=== PATIENT | female | born 1990 | race Caucasian/White ===

== ENCOUNTER → 2021-01-23 14:59 | Outpatient (CLI) | payer OTHER, SELFPAY ==
[2021-01-23 15:25] LABS: Add Manual Diff / Slide Review NO; Basophils Absolute Auto 100 /uL (0-100); Eosinophils Absolute Auto 100 /uL (0-450); Eosinophils Percent Auto 0.7 % (2-4); Hemoglobin 13.7 g/dL (12.0-16.0); Lymphocytes Absolute Auto 2200 /uL (1100-4500); Lymphocytes Percent Auto 17.7 % (25-40); Mean Corpuscular HGB Conc 33.3 % (30-36); Mean Corpuscular Hemoglobin 28.1 PG (26-34); Mean Corpuscular Volume 84.3 fL (80-100); Monocytes Absolute Auto 1000 /uL (0-900); Monocytes Percent Auto 8.2 % (3-14); Neutrophils Absolute Auto 9000 /uL (1500-7000); Neutrophils Percent Auto 72.4 % (50-75); Platelet Count 343 X10^3/uL (150-400); Red Blood Cell Count 4.86 X10^6/uL (4.0-5.2); Red Cell Distribution Width 15.6 % (11.6-14.8); White Blood Cell Count 12.4 X10^3/uL (4.5-11.0)
[2021-01-23 15:50] LABS: Appearance Urine UA CLEAR; Bilirubin Urine UA NEGATIVE (NEGATIVE); Color Urine UA YELLOW; Glucose Urine UA NEGATIVE (Negative); Ketones Urine UA NEGATIVE (NEGATIVE); Leukocyte Esterase Urine UA NEGATIVE (NEGATIVE); Nitrite Urine UA NEGATIVE (Negative); Occult Blood Urine UA NEGATIVE (Negative); Protein Urine UA NEGATIVE (Negative); Specific Gravity Urine UA 1.015 (1.000-1.035); Urobilinogen Urine UA 0.2 E.U./dL (0.2)
[2021-01-23 16:18] LABS: Hepatitis B Surface Antigen NEGATIVE s/c (NEGATIVE)
[2021-01-23 16:26] LABS: Rubella Antibody IgG 57.4 IU/mL (>15)
[2021-01-23 16:48] LABS: HIV 1 & 2 Ab/Ag 4th Gen Combo NEGATIVE (NEGATIVE); Hep C Virus Ab w/Reflex Quant NEGATIVE s/c (NEGATIVE)
[2021-01-24 06:16] LABS: RPR Screen Non Reactive (Non Reactive)
[2021-01-24 07:58] LABS: Varicella IgG Antibody >4000 index (Immune >165)
== END ==
PROVIDERS: Referring Provider Family Medicine; Visit Provider Family Medicine
DX: Z34.01 Encounter for supervision of normal first pregnancy, first trimester (principal)
CPT/HCPCS: 36415; 80055; 81003; 86787; 86803; 86850; 86900; 86901; 87086; 87389

== ENCOUNTER → 2021-03-26 15:29 | Outpatient (CLI) | payer OTHER, SELFPAY ==
[2021-03-28 21:14] LABS: AFP, Serum 59.6 ng/mL (.); Calc Gestational Age EDD (.); Inhibin A, Dimeric 304.85 pg/mL (.); Inhibin A, MoM 2.34 (.); Maternal Ethnicity Caucasian (.); Maternal Weight 202 lbs (.); Number of Fetuses No (.); OSBR Risk 1 IN 1757 (.); Results Report (.); Test Results *Screen Negative* (.); hCG, MoM 1.56 (.); hCG, Serum 37477 mIU/mL (.)
== END ==
PROVIDERS: Referring Provider Family Medicine; Visit Provider Family Medicine
DX: Z34.90 Encounter for supervision of normal pregnancy, unspecified, unspecified trimester (principal)
CPT/HCPCS: 36415; 82105; 82677; 84702; 86336

== ENCOUNTER → 2021-04-10 12:41 | Outpatient (CLI) | payer OTHER, SELFPAY ==
--- NOTE | 2021-04-10 12:43 | DI.US.S_ITS ---
PROCEDURE: US OB >= 14 WEEKS FETUS INDICATIONS: ANATOMY OUTSIDE/PRIOR DATING DATA: Last menstrual period (LMP): Unknown. LMP-based estimated date of delivery (ZION): Unknown. First dating scan (date and location): 04/10/2021 at [facility]. Estimated date of delivery (ZION) from first dating scan: 08/27/2021. TECHNIQUE: Real-time scanning was performed of the fetus, with image documentation and biometric measurements. Endovaginal scanning: Not performed. COMPARISON: None. FINDINGS: General: A single living intrauterine gestation is present. Presentation: Breech Placenta: Placental position is anterior, without previa. Amniotic fluid index: 11.1 cm, normal range is 5-24 cm. Largest pocket is 4.2 cm. heart rate: 171 beats per minute. Maternal cervical canal: 3.9 cm long. Normal lower limit is 2.5 cm. biometrics: Biparietal diameter: 4.4 cm, 19 weeks 3 days Head circumference: 17.8 cm, 20 weeks 2 days Abdominal circumference: 15.2 cm, 20 weeks 3 days Femur length: 3.3 cm, 20 weeks 1 day Estimated gestational age from initial scan: not applicable. Composite gestational age from present scan: 20 weeks 1 day Estimated weight and percentile: 341 gramst Measurement variability for biometric dating: +/- 7 days from 14 weeks to 15 weeks 6 days gestation, +/- 10 days from 16 weeks to 21 weeks 6 days gestation, +/- 2 weeks from 22 weeks to 27 weeks 6 days gestation, +/- 3 weeks for 28 weeks gestation or later. weight reference: 4500 g or EFW >90/95% is considered macrosomia or large for gestational age. EFW <10% is small for gestational age. EFW 5% or less is considered intra-uterine growth restriction. Anatomic survey: Neuro: Ventricles are non-dilated at less than 10 mm. Cisterna magna is normal at 3-11 mm. Cerebellum is normal in size and morphology. Nuchal skin fold: Normal at less than 6 mm between 14-21 weeks gestational age. Face: Facial profile is normal. Nose and lips are not well visualized. Spine: No evidence for spina bifida. Heart: 4-chambered heart is slightly suboptimally visualized. Ventricular outflow tracts are grossly normal. Diaphragm: Diaphragm is intact. Stomach: Left-sided stomach is present. Kidneys: No hydronephrosis. Normal is less than 5 mm in 2nd trimester, less than 7 mm in 3rd trimester. Cord: 3-vessel cord has orthotopic insertion. Bladder: Normal in size. Extremities: All 4 extremities identified. IMPRESSION: 1. Single live intrauterine with estimated gestational age of 20 weeks 1 day. 2. nose and lips, and 4 chamber heart view are suboptimally visualized. Recommend follow-up exam. 3. Otherwise, normal anatomic survey. Dictated by: Gilbert Smith M.D. on 04/10/2021 at 16:19 Approved by: Gilbert Smith M.D. on 04/10/2021 at 16:25
== END ==
PROVIDERS: PCP Family Medicine; Referring Provider Family Medicine; Visit Provider Family Medicine
DX: Z34.92 Encounter for supervision of normal pregnancy, unspecified, second trimester (principal); Z3A.20 20 weeks gestation of pregnancy
CPT/HCPCS: 76811

== ENCOUNTER → 2021-04-23 12:47 | Outpatient (CLI) | payer OTHER, SELFPAY ==
--- NOTE | 2021-04-23 12:48 | DI.US.S_ITS ---
PROCEDURE: US OB FOLLOW UP INDICATIONS: IMCOMPLETE IMAGING OUTSIDE/PRIOR DATING DATA: First dating scan (date and location): [facility]; April 10, 2021 . Estimated date of delivery (ZION) from first dating scan: August 27, 2021 . TECHNIQUE: Real-time scanning was performed of the fetus, with image documentation. COMPARISON: None. FINDINGS: A single living intrauterine gestation is present. Presentation: Breech. Placenta: Placental position is anterior , without previa. Amniotic fluid index: 15.8 cm, normal range is 5-24 cm. heart rate: 158 beats per minute. Maternal cervical canal: 5.2 cm long. Normal lower limit is 2.5 cm. Estimated gestational age from initial scan: 22 weeks . Normal four-chamber view. Face, orbits, and lips are still not well seen. IMPRESSION: Live single intrauterine gestation as detailed above. Dictated by: Abisai García M.D. on 04/23/2021 at 14:46 Approved by: Abisai García M.D. on 04/23/2021 at 14:49
== END ==
PROVIDERS: PCP Family Medicine; Referring Provider Family Medicine; Visit Provider Family Medicine
DX: Z36.2 Encounter for other antenatal screening follow-up (principal); Z3A.22 22 weeks gestation of pregnancy
CPT/HCPCS: 76816

== ENCOUNTER → 2021-04-30 12:38 | Outpatient (CLI) | payer OTHER, SELFPAY ==
--- NOTE | 2021-04-30 | DI.US.S_ITS ---
PROCEDURE: US OB FOLLOW UP INDICATIONS: NOSE/LIPS FOLLOW UP OUTSIDE/PRIOR DATING DATA: Last menstrual period (LMP): Unknown. First dating scan (date and location): [facility]; April 10, 2021 . Estimated date of delivery (ZION) from first dating scan: August 27, 2021 . TECHNIQUE: Real-time scanning was performed of the fetus, with image documentation. COMPARISON: [facility], , OB FOLLOW UP, 04/23/2021, 12:56. FINDINGS: A single living intrauterine gestation is present. Presentation: Vertex. Placenta: Placental position is anterior , without previa. Amniotic fluid index: 13.7 cm, normal range is 5-24 cm. heart rate: 158 beats per minute. Maternal cervical canal: 6.1 cm long. Normal lower limit is 2.5 cm. Estimated gestational age from initial scan: 23 week . Face, lips, orbits: Normal appearance. IMPRESSION: Live single intrauterine gestation as detailed above. Dictated by: Abisai García M.D. on 04/30/2021 at 13:29 Approved by: Abisai García M.D. on 04/30/2021 at 13:32
== END ==
PROVIDERS: PCP Family Medicine; Referring Provider Family Medicine; Visit Provider Family Medicine
DX: Z36.2 Encounter for other antenatal screening follow-up (principal); Z3A.23 23 weeks gestation of pregnancy
CPT/HCPCS: 76816

== ENCOUNTER → 2021-06-11 14:56 | Outpatient (CLI) | payer OTHER, SELFPAY ==
[2021-06-11 16:46] LABS: Add Manual Diff / Slide Review NO; Basophils Absolute Auto 100 /uL (0-100); Basophils Percent Auto 0.7 % (0-2); Eosinophils Absolute Auto 100 /uL (0-450); Eosinophils Percent Auto 1.3 % (2-4); Hematocrit 30.2 % (36-46); Lymphocytes Absolute Auto 1800 /uL (1100-4500); Lymphocytes Percent Auto 18.3 % (25-40); Mean Corpuscular HGB Conc 32.9 % (30-36); Mean Corpuscular Hemoglobin 26.9 PG (26-34); Mean Corpuscular Volume 81.8 fL (80-100); Monocytes Absolute Auto 600 /uL (0-900); Monocytes Percent Auto 6.3 % (3-14); Neutrophils Absolute Auto 7100 /uL (1500-7000); Neutrophils Percent Auto 73.4 % (50-75); Platelet Count 258 X10^3/uL (150-400); Red Cell Distribution Width 14.4 % (11.6-14.8); White Blood Cell Count 9.7 X10^3/uL (4.5-11.0)
[2021-06-11 17:33] LABS: GTT (PREG) 1 Hour PP 50gm Dose 153 mg/dL (76-139)
== END ==
PROVIDERS: PCP Family Medicine; Referring Provider Family Medicine; Visit Provider Family Medicine
DX: Z34.83 Encounter for supervision of other normal pregnancy, third trimester (principal); Z3A.26 26 weeks gestation of pregnancy
CPT/HCPCS: 36415; 82950; 85025

== ENCOUNTER → 2021-06-18 07:09 | Outpatient (CLI) | payer OTHER, SELFPAY ==
[2021-06-18 08:57] LABS: Glucose Fasting Gestational 89 mg/dL (76-95)
[2021-06-18 09:40] LABS: Glucose 1 Hour Gest 220 mg/dL (76-180)
[2021-06-18 10:35] LABS: Glucose Tol Interp,Gestational INTERPRETATION
[2021-06-18 10:38] LABS: Glucose 2 Hour Gest 157 mg/dL (76-155)
[2021-06-18 11:19] LABS: Glucose 3 Hour Gest 81 mg/dL (76-140)
== END ==
PROVIDERS: PCP Family Medicine; Referring Provider Family Medicine; Visit Provider Family Medicine
DX: Z34.90 Encounter for supervision of normal pregnancy, unspecified, unspecified trimester (principal); R73.09 Other abnormal glucose
CPT/HCPCS: 36415; 82951; 82952

== ENCOUNTER → 2021-06-25 15:08 | Outpatient (CLI) | payer OTHER, SELFPAY ==
--- NOTE | 2021-06-25 17:30 | DIAB.GDA ---
Addendum entered by Doris Granados 07/03/21 09:15: Pt messaged BG values on 07/03/21. All within goal range. Some 2 hr pc breakfast on the lower end in 80s. So, potentially could add more nutrition to breakfast to meet goal of 100-120 2 hour pc. Will see her virtually next week to cont evaluation of GDM mgmgnt. Original Note: Initial Gestational Diabetes Assessment Name: Taylor Mccain Date: 06/25/21 Time: 315-430p Dx: Gestational Diabetes Provider: Estelle ZION: 08/29/21 Weeks: 30-31 Taylor presents with , Aakash, for initial visit. States she has been very worried about diagnosis. Worries about complications associated with GDM, specifically preeclampsia risk. Denies any FH of DM. Has cut back on carb intake. Food journal indicates 15-60g CHO per eating occurrence. Eating below SITE LEAD for for carbohydrates. States she likes convenience foods and often does not feel like cooking. Diet Recall: 630a: eggs, bread, cheese, tomatoes 13g CHO 9a: avocado, 2 crackers, cheese, almonds 15g CHO 1230p: salad, chicken, half slice bread, 2 cuties 30g CHO 330p: crackers, tomatoes, nuts, cheese 15g CHO 6p: pierogies and vegetables with tofu OR burgers without bun 0-60g CHO Beverages: 64+ oz water Anthropometrics: Ht: 5'6.5 Wt: 217# at provider visit Prepregnancy wt: 190# Wt changes: +27# Prepregnancy BMI: 30 Recommended wt gain per BMI: 11-20# Physical Activity: No program Self-Monitoring Blood Glucose: Started checking yesterday. Denies any questions about SMBG. All in range. Date Pre Post Pre Post Pre Post HS 06/24 84 81 71 104 06/25 87 89 Diabetes Medications: None Pertinent Labs: OGTT: 89, 220 H, 157H, 81 Nutrition Rx: Carbohydrates: Meal: 45g lunch and 45-60g dinner; 30g breakfast Snack: 15g Nutrition Diagnosis: Altered nutrition related lab value r/t GDM dx aeb recent OGTT Inadequate carb intake r/t increased needs during aeb diet journal Intervention: This participant was very receptive. Provided appropriate educational handouts. Discussed the following topics: GDM pathophysiology and impact of hyperglycemia on mom and baby Risk for T2DM for mom and baby in the future Ways to reduce risk T2DM Reducing risks with well managed GDM and discussing preeclampsia further with provider Plate Method, meal timing, carb counting, pairing macronutrients and spreading out CHO for better BG management Blood glucose goals (FBG: <95 and 2 hour <120 mg/dL); importance of checking 4x per day (FBG and pc) Impact of macronutrients on blood glucose Recommended servings for carbohydrates at meals and snacks Brainstormed appropriate meal plan based on her food preferences Role of physical activity and following provider guidelines for safety Goals: Follow carb recs (add with moderation) Cont checking Bg and documenting Pair carbs and protein at meals and snacks After dinner add a walk or exercise Follow-up: CHANELLE LAZO follow-up in one week via email with BG (she will be out of town). Requested virtual f/u due to work. Plan to f/u in two weeks virtually. Doris Granados RDN, [place] Certified Diabetes Care and Game Attendant T: [phone] F: [phone] [email or web address] Thank you for this referral
== END ==
PROVIDERS: PCP Family Medicine; Referring Provider Family Medicine; Visit Provider Family Medicine
DX: O24.419 Gestational diabetes mellitus in pregnancy, unspecified control (principal)
CPT/HCPCS: 97802

== ENCOUNTER → 2021-07-10 15:27 | Outpatient (CLI) | payer OTHER, SELFPAY ==
--- NOTE | 2021-07-10 16:10 | DIAB.GDFU ---
Follow-up Gestational Diabetes Assessment Name: Taylor Mccain Date: 07/10/21 Time: 330-4p Dx: Gestational Diabetes Provider: Estelle ZION: 08/29/21 Weeks: 32-33 Taylor presents for this virtual visit completed via [employer]. She has consented and understands any risks associated with virtual visits. She recently returned from vacation in [place]. States managing GDM was difficult while on vacation. Reports most BG in range, however last three dinners were elevated r/t higher carb intake, low vegetable/fiber intake. States these were the last nights in [place] and they were eating higher carb convenient foods. Also endorses higher sweet intake. States she feels confident that she can resume regular meals now that she is home. Has been checking carbs for eating out online and aiming for nutrition rx. Noticed keeping dinner at 45-60g seems to work well for BG. Highest BG 154 last night from grazing on the way home and frozen yogurt. Reports some stress with family dynamics. She wonders if this could play a role in BG. Sees OB on the for f/u. Overall feeling satisfied with meals within nutrition rx. Anthropometrics: (From last visit) Ht: 5'6.5 Wt: 217# at provider visit Prepregnancy wt: 190# Wt changes: +27# Prepregnancy BMI: 30 Recommended wt gain per BMI: 11-20# Physical Activity: Endorses increased walking on vacation, but has not implemented exercise after dinner discussed last visit. Plans to do so this week. Self-Monitoring Blood Glucose: All FBG in range. All pc breakfast and lunch readings in range. 3/6 elevated dinner readings r/t high carb intake. Date Pre Post Pre Post Pre Post HS 07/04 86 98 94 07/05 86 97 98 /2 94 106 97 07/07 91 90 144 07/08 90 115 141 / 93 86 105 154 / 92 113 Diabetes Medications: None Pertinent Labs: OGTT: 89, 220 H, 157H, 81 Nutrition Rx: Carbohydrates: Meal: 45g lunch and 45-60g dinner; 30g breakfast Snack: 15g Nutrition Diagnosis: Altered nutrition related lab value r/t GDM dx aeb recent OGTT Inadequate carb intake r/t increased needs during aeb diet journal- improved Excessive CHO intake r/t dinner portions aeb pt report - new Intervention: This participant was very receptive. Provided appropriate educational handouts. Discussed the following topics: Recent blood sugar results and impact of food Review of macronutrient recommendations during Recs for physical activity during Stress impact on BG Goals: Follow carb recs (add with moderation)- met/in progress Cont checking Bg and documenting- met Pair carbs and protein at meals and snacks- met After dinner add a walk or exercise- not met Reduce CHO at dinner to 45-60g - new Implement exercise game after dinner- new Follow-up: CHANELLE LAZO follow-up in two weeks via Vsee. Taylor would prefer to f/u virtually. Overall she seems to be doing well with GDM mgmgnt. She agree to work on phys activity safely and reducing carbs at dinner to nutrition rx. Doris Granados RDN, [facility] Certified Diabetes Care and Mounting Machine Operator T: [phone] F: [phone] [email or web address] Thank you for this referral
== END ==
PROVIDERS: PCP Family Medicine; Referring Provider Family Medicine; Visit Provider Family Medicine
DX: O24.410 Gestational diabetes mellitus in pregnancy, diet controlled (principal); Z3A.32 32 weeks gestation of pregnancy
CPT/HCPCS: 97803

== ENCOUNTER → 2021-07-24 17:03 | Outpatient (CLI) | payer OTHER, SELFPAY ==
--- NOTE | 2021-07-24 17:05 | DIAB.GDFU ---
Follow-up Gestational Diabetes Assessment Name: Taylor Mccain Date: 07/24/21 Time: 410-450p Dx: Gestational Diabetes Provider: Estelle ZION: 08/29/21 Weeks: 35 Taylor presents today for follow-up GDM visit via WebTV platform. She has consented to this virtual visit. States she has been very mindful of carb portions. Keeping intake to rec 30g at breakfast and 45 at lunch and 45-60g at dinner. With this BG have been in range. Reports avoiding restaurants that she cannot carb count. States she has been craving sweets recently, especially with the leftover sweets from her baby shower. She endorses spreading out carb intake and pairing sweets with protein when having them. Keeping CHO to 1c at dinner and having high protein chickpea pasta too. Currently taking [facility] classes. Anthropometrics: Ht: 5'6.5 Wt: 221# at provider visit Prepregnancy wt: 190# Prepregnancy BMI: 30 Physical Activity: Activity continues to be hard to schedule in for her, but she has increased her walking and activity games with . Also has been trying to move more use the stairs. Self-Monitoring Blood Glucose: All reading in range except one dinner pc reading, which seems elevated from extra sauce used with carbs. Checking FBG and 2 hour pc. ADA goal of 100-120 mg/dL. Reports adequate carb intake and satiety with meals. One reading of 65 seems like an error (had carbs with breakfast and no symptoms of low). Date Pre Post Pre Post Pre Post HS 07/18 84 84 105 92 07/19 82 65 102 100 07/20 86 102 115 138 07/21 89 86 94 108 07/22 79 112 94 99 07/23 85 111 100 94 07/24 86 107 97 Diabetes Medications: None Pertinent Labs: OGTT: 89, 220 H, 157H, 81 Nutrition Rx: Carbohydrates: Meal: 45g lunch and 45-60g dinner; 30g breakfast Snack: 15g Nutrition Diagnosis: Altered nutrition related lab value r/t GDM dx aeb recent OGTT Excessive CHO intake r/t dinner portions aeb pt report - improved Nutrition and food related knowledge deficit r/t needing education on recs aeb pt report - new Intervention: This participant was very receptive. Provided appropriate educational handouts. Discussed the following topics:g Recent blood sugar results and impact of food Review of current nutrition intake Review of eating out portions Benefits, resources, and nutrition for recommendations for nutrition and physical activity recommendations for T2DM risk reduction OGTT at 6-12 weeks Option of checking blood sugars twice per week (goal: fasting <100 mg/dL and 2 hour pc <140 mg/dL) until 6 week check-up HgA1c q 1-3 years. Risk of T2 and how to reduce risk Goals: Reduce CHO at dinner to 45-60g - met Implement exercise game after dinner- improved Try to remain active daily- new : OGTT 6-12weeks HgA1c q 1-3 years Follow nutrition guidelines discussed Stay active Follow-up: CHANELLE LAZO follow-up prn Doris Granados RDN, [place] Certified Diabetes Care and Tool Grinder T: [phone] F: [phone] [email or web address] Thank you for this referral
== END ==
PROVIDERS: PCP Family Medicine; Referring Provider Family Medicine; Visit Provider Family Medicine
DX: O24.410 Gestational diabetes mellitus in pregnancy, diet controlled (principal); Z3A.35 35 weeks gestation of pregnancy
CPT/HCPCS: 97803

== ENCOUNTER → 2021-07-30 15:15 | Outpatient (CLI) | payer OTHER, SELFPAY ==
[2021-08-01 09:31] LABS: Strep Grp B PCR NEG for Grp B Strep
== END ==
PROVIDERS: PCP Family Medicine; Referring Provider Family Medicine; Visit Provider Family Medicine
DX: Z34.03 Encounter for supervision of normal first pregnancy, third trimester (principal); Z3A.27 27 weeks gestation of pregnancy
CPT/HCPCS: 87653

== ENCOUNTER 2021-08-27 01:43 | Inpatient (IN) | payer OTHER, SELFPAY ==
[2021-08-27 05:40] LABS: Add Manual Diff / Slide Review NO; Basophils Absolute Auto 100 /uL (0-100); Basophils Percent Auto 0.8 % (0-2); Eosinophils Absolute Auto 100 /uL (0-450); Eosinophils Percent Auto 0.6 % (2-4); Hematocrit 41.3 % (36-46); Hemoglobin 13.6 g/dL (12.0-16.0); Lymphocytes Absolute Auto 1900 /uL (1100-4500); Lymphocytes Percent Auto 14.7 % (25-40); Mean Corpuscular HGB Conc 32.8 % (30-36); Mean Corpuscular Hemoglobin 27.7 PG (26-34); Mean Corpuscular Volume 84.3 fL (80-100); Monocytes Absolute Auto 800 /uL (0-900); Monocytes Percent Auto 6.6 % (3-14); Neutrophils Absolute Auto 10000 /uL (1500-7000); Neutrophils Percent Auto 77.3 % (50-75); Platelet Count 227 X10^3/uL (150-400); Red Cell Distribution Width 18.5 % (11.6-14.8); White Blood Cell Count 12.9 X10^3/uL (4.5-11.0)
[2021-08-27 05:51] LABS: COVID19 -Nasal RAPID Negative (Negative)
--- NOTE | 2021-08-27 08:35 | PM.OBHP.IH.1 ---
OB HPI Date/Time Date of admission: 08/27/21 Date Patient Seen: 08/27/21 Time Patient Seen: 07:50 History of Present Condition Chief complaint: LABOR PAINS ZION Calculator Estimated Delivery Date Method Current WG Current Estimate 08/29/21 Manual 39w 5d Final ZION - SOTERO Other Estimates 08/29/21 LMP (Certain) 39w 5d 08/29/21 Ultrasound #1 39w 5d Estimated Gestational Age (weeks): 39w5d : 1 Para: 0 Narrative: Pt is a 31yo at 39w5d here with regular painful contractions. Contractions started yesterday afternoon, increasing in frequency and intensity since then. She felt a little leaking yesterday but nothing since then. No vaginal bleeding. She is feeling her baby move regularly. Her was complicated by GDMA1 with excellent dietary control. care: good care, initiated at week # (8) and pounds weight gain (35) Dating criteria OB: LMP confirmed by 1st trimester US Ultrasounds: normal 1st trimester US and normal mid trimester US Obstetrical complications: gestational diabetes Medical complications OB: none Preadmission Labs Last OB Lab Results: Blood Type A Positive 08/27/21 04:45 08/27/21 Antibody Screen Negative 08/27/21 04:45 08/27/21 Hematocrit 41.3 % (36-46) 08/27/21 04:45 08/27/21 Hemoglobin 13.6 g/dL (12.0-16.0) 08/27/21 04:45 08/27/21 Hepatitis B Surface Antigen Negative s/c (NEGATIVE) 01/23/21 15:04 01/23/21 Hepatitis C Antibody Negative s/c (NEGATIVE) 01/23/21 15:04 01/23/21 Rubella Antibody 57.4 IU/mL (>15) 01/23/21 15:04 01/23/21 Varicella-Zoster IgG Antibody >4000 index (Immune >165) 01/23/21 15:04 01/23/21 Glucose 1 Hour 153 mg/dL (76-139) H 06/11/21 16:30 06/11/21 Group B Streptococcus (PCR) Neg for grp b strep 07/30/21 15:15 07/30/21 Glucose Tolerance Testing: Fasting (89), 1 hr (220), 2 hr (157) and 3 hr (81) -: Urine: negative Genetic Screens: Quad screen: Normal External Labs -: Urine: negative Evaluation Evaluation Baseline heart rate: 130 Variability: Moderate (11-25) monitor accelerations: Present Monitor Decelerations: Absent Contraction Frequency (minutes): 6 Status: Category l Dilation (cm): 6 Effacement (%): 90 station: -1 [facility], [facility] Medical History (Updated 07/16/21 @ 17:59 by Porsha Mccabe MD) Closed right arm fracture (~1994) Wears glasses Surgical History (Updated 01/16/21 @ 15:45 by Yaneli Merino RN) [place] teeth extracted (~2009) Family History (Updated 01/16/21 @ 16:14 by Yaneli Merino RN) Mother Obesity Miscarriage Anemia Hypertension Sciatica Herniated disc Father Patellar bursitis Hyperlipidemia Detached retina Hernia Grandmother Stroke (cerebrum) Rheumatic fever Diabetes mellitus Arellano-Monty syndrome Poor circulation Grandfather Congestive heart failure Arrhythmia Myocardial infarction S/P CABG x 4 S/P CABG x 5 Hypertension History of cholecystectomy Shingles Grandmother Osteoporosis Hyperlipidemia Cataracts, bilateral Angina pectoris, unspecified Parkinson's disease Arrhythmia Grandfather Cataracts, bilateral Dementia Schizoid personality Alzheimer disease Sister Schizophrenia Arellano-Monty syndrome History of seizures as a child Bipolar 1 disorder Depression Brother Autism Sister Ulcerative colitis Social History marital status: number of children: 0 household members: spouse lives independently: Yes caregiver/support person: No housing: apartment pets and animals: No education level: college (BA Child Development ) occupational status: employed (Works from home, 8-5, for [employer] company. ) current occupational exposures/hazards: No north/episcopalian: Zoroastrianism Saint / Scientology special north needs: Yes (Will likely wear undergarments in labor, but OK with taking them off. ) seatbelt use: always do you feel safe at home: Yes Smoking Status: Never smoker second hand exposure: No alcohol intake: never substance use type: does not use during the past year weight has: increased > 10 lbs well-balanced diet: daily or most days daily servings fruits/ve-4 caffeine: Yes (Rare. ) Type(s) of exercise: walking (Occasional -- wants to do more. ) and normal ROM and activity frequency: does not exercise Meds Home Medications and Allergies Home Medications Medication Instructions Recorded Confirmed Type prenat.vits,kamron,jyl-lsql-pshgv 1 tab PO DAILY 01/16/21 08/27/21 History blood-glucose meter #1 ea 06/23/21 08/27/21 Rx blood sugar diagnostic (Blood #100 ea 07/16/21 08/27/21 Rx Glucose Test) lancets 33 gauge (BD Ultra Fine #100 ea 07/16/21 08/27/21 Rx Lancets) Allergies Allergy/AdvReac Type Severity Reaction Status Date / Time pine nut Allergy Intermediate Tongue Verified 08/06/21 12:08 gets numb. house dust Allergy Mild Rhinorrhea Verified 08/06/21 12:08 Sulfa (Sulfonamide AdvReac Intermediate Flu-like Verified 08/06/21 12:08 Antibiotics) symptoms OB Exam Narrative Exam Narrative: Gen: NAD, laying comfortably in bed, appears well CV: RRR, no murmurs Resp: clear to auscultation bilaterally Abd: soft, gravid, nontender Ext: trace edema Objective Labs Result Diagrams: 08/27/21 04:45 Labs: Laboratory Results - last 24 hr 08/27/21 08/27/21 08/27/21 04:45 04:45 04:45 WBC 12.9 H RBC 4.90 Hgb 13.6 Hct 41.3 MCV 84.3 MCH 27.7 MCHC 32.8 RDW 18.5 H Plt Count 227 Neut % (Auto) 77.3 H Lymph % (Auto) 14.7 L Will % (Auto) 6.6 Eos % (Auto) 0.6 L Baso % (Auto) 0.8 Neut # (Auto) 35628 H Lymph # (Auto) 1900 Will # (Auto) 800 Eos # (Auto) 100 Baso # (Auto) 100 SARS-CoV-2 (PCR) Negative Blood Type A Positive Antibody Screen Negative Assessment and Plan Assessment and Plan Assessment and Plan narrative: 31yo at 39w5d here in active labor. GBS negative, Rh positive. complicated by very well controlled GDMA1. - Expectant management, anticipate - FHT reassuring - GBS negative, no prophylaxis indicated - Epidural for pain control when desired
[2021-08-27] MEDS: LACTATED RINGERS 1,000 ML 100 ML IV ×2 (10:59→12:03)
[2021-08-27] MEDS: FENT 2MCG/ML BUPIV 0.125% EPI 200 MCG/100 ML PLAST..BAG 6 MCG EPIDURAL (11:30)
[2021-08-27] MEDS: OXYTOCIN PREMIX 30 UNIT/500 ML PLAST..BAG 200 UNIT IV (16:45)
--- NOTE | 2021-08-27 16:45 | PM.OBPNLAB ---
Date/Time Date Patient Seen: 08/27/21 Time Patient Seen: 14:15 Pain Control Pain control: tolerating well and epidural Pelvic Exam Dilation (cm): 6 Effacement (%): 90 station: -1 Amniotic membrane status: Ruptured Comments: After informed consent, AROM with meconium-stained fluid. Contractions Contraction frequency (min): 5 Status status: Category l Heart Rate Baseline: 130 Monitor Accelerations: Present Monitor Decelerations: Absent Monitor Variability: Moderate Assessment and Plan Comments: 31yo at 39w5d here in active labor.? GBS negative, Rh positive.? complicated by very well controlled GDMA1. AROM performed with production of meconium-stained fluid. - Expectant management, anticipate - FHT reassuring - GBS negative, no prophylaxis indicated - Epidural for pain control in place
--- NOTE | 2021-08-27 16:45 | PM.OBPNLAB ---
Date/Time Date Patient Seen: 08/27/21 Time Patient Seen: 16:00 Pain Control Pain control: tolerating well and epidural Pelvic Exam Dilation (cm): 6 Effacement (%): 90 station: 0 Amniotic membrane status: Ruptured Contractions Contraction frequency (min): 6 Status status: Category l Heart Rate Baseline: 130 Monitor Accelerations: Present Monitor Decelerations: Absent Monitor Variability: Moderate Assessment and Plan Comments: 31yo at 39w5d here in active labor.? GBS negative, Rh positive.? complicated by very well controlled GDMA1. AROM with meconium-stained fluid. Due to lack of cervical change, will initiate pitocin. - Expectant management, anticipate - FHT reassuring - GBS negative, no prophylaxis indicated - Epidural for pain control in place - Start pitocin, titrate as tolerated
[2021-08-27] MEDS: FENT 2MCG/ML BUPIV 0.125% EPI 200 MCG/100 ML PLAST..BAG 9 MCG EPIDURAL (19:29)
[2021-08-27] MEDS: LACTATED RINGERS 1,000 ML 1000 ML IV (19:42)
--- NOTE | 2021-08-27 22:57 | PM.OBPRVD ---
Events: Gestational Diabetes Labor & Delivery Delivery date: 08/27/21 Intrapartal Events: None Cervical ripening method: none Induction method: none Delivery augmentation: rupture of membranes and pitocin Delivery monitor: external FHT Route of delivery: Episiotomy description: None L&D Laceration Description: Perineal - 2nd Degree Delivery repair: chromic Estimated blood loss (mL): 100 Anesthesia Type: Epidural Complications: None Narrative: PROCEDURE: at 39w5d presented in active labor and was admitted to Labor and Delivery. The patient progressed through the 1st stage over 29 hours. AROM was performed with production of meconium-stained fluid. Pitocin was then initiated due to lack of progress beyond 6cm. Pain was controlled with an epidural. The patient progressed through the 2nd stage over 2 hours and delivered a viable female infant with APGARs 6/9 at 22:26 via without complications. Nuchal cord x1 was reduced after delivery. The cord was cut and clamped after 1 minute, when it was determined the needed to be taken to the warmer for additional stimulation and suctioning. The perineum and vagina were inspected with 2nd degree perineal laceration repaired with 2-O Vicryl. PREPROCEDURE DIAGNOSIS: Intrauterine at 39w5d GBS negative RH positive GDMA1 POSTPROCEDURE DIAGNOSIS: Intrauterine at 39w5d, delivered Same as preprocedure Baby 1: Infant gender: Female Presentation: vertex Position: Right Occiput Anterior Placenta delivery description: Spontaneous Cord Vessel Description: 3 Vessels and Nuchal Cord score (1 min): 6 score (5 min): 9 weight: 8 lb 14.507 oz Plan for aftercare: Routine care
[2021-08-28] MEDS: IBUPROFEN 600 MG TABLET PO ×4 (02:40→22:54)
[2021-08-28] MEDS: DERMOPLAST SPRAY 20% 60 ML 1 SPRAY TOP (06:19)
[2021-08-28] MEDS: LANOLIN OINT 7 GM 1 APPLIC TOP (08:51)
[2021-08-28] MEDS: DOCUSATE 100 MG CAPSULE PO (08:52)
--- NOTE | 2021-08-28 10:41 | PM.OBPN.1 ---
Subjective - OB Subjective Interval history: Pt reports she is feeling well. She has voided and ambulated, and is passing flatus. Her lochia is decreasing appropriately. She is with good latch. Exam Narrative Exam Narrative: Gen: NAD, sitting comfortably in bed, appears well CV: RRR, no murmurs Resp: clear to auscultation bilaterally Abd: soft, appropriately tender, fundus firm and below the umbilicus, nondistended Ext: no edema Objective Labs Result Diagrams: 08/27/21 04:45 Assessment & Plan Plan Comments: 31yo PPD #1 s/p without complications. Pt doing well. - Normal care - support Time Spent With Patient Time: Total time spent is greater than 50% in coordination of care (as documented) at patient's floor/unit and/or counseling patient: Time with patient: less than 15 minutes
[2021-08-28] MEDS: ACETAMINOPHEN 325 MG TABLET 650 MG PO (22:54)
[2021-08-29] MEDS: IBUPROFEN 600 MG TABLET PO ×2 (05:01→11:26)
[2021-08-29] MEDS: ACETAMINOPHEN 325 MG TABLET 650 MG PO ×2 (05:01→11:25)
--- NOTE | 2021-08-29 07:59 | PM.OBDS.1 ---
Discharge Providers Provider Date of admission: 08/27/21 01:43 Discharge Date: 08/29/21 Primary care physician: Porsha Mccabe MD Consults: 08/28/21 22:55 Consult to Banquet Line Cook Routine Comment: Discharge provider: Porsha Mccabe MD Summary Hospital Course Date Patient Seen: 08/29/21 Time Patient Seen: 07:40 Diagnoses: 39w5d gestation GBS negative Rh positive GDMA1 Meconium-stained amniotic fluid Hospital Course: The pt presented in active labor. She received an epidural for pain control. AROM was performed with production of meconium-stained fluid. Pitocin was initiated due to limited cervical change. The pt progressed to complete and had an of a viable baby girl on 08/27/21. A 2nd degree laceration was then repaired. There were no complications with delivery. , there were no complications. At the time of discharge she was voiding, ambulating, and passing flatus without difficulty. Her lochia was decreasing appropriately. Her pain was well controlled. She was with good latch. She will f/u in 6 weeks for check. She is undecided regarding contraception. Peripartum Data Infant Delivery Method: Natural Vaginal Laceration Description: Perineal - 2nd Degree Episiotomy description: None Procedures: Spontaneous vaginal delivery complications: none 1: Gender: Female Disposition of : home Discharge Diagnosis (1) Spontaneous vaginal delivery: Status: Acute (2) GDM (gestational diabetes mellitus), class A1: Status: Acute Status at Discharge Cognitive/behavioral status at discharge: oriented Functional status at discharge: independent ambulation Overall status at discharge: patient is progressing back to baseline Time Spent with Patient Time attestation: Total time spent providing and/or coordinating discharge services: Objective Labs Result Diagrams: 08/27/21 04:45 Exam Narrative Exam Narrative: Gen: NAD, sitting comfortably in bed, appears well CV: RRR, no murmurs Resp: clear to auscultation bilaterally Abd: soft, appropriately tender, fundus firm and below the umbilicus, nondistended Ext: no edema Discharge Plan Discharge Plan Patient Disposition: Home Discharge orders & Medications Prescriptions: New acetaminophen 325 mg Tablet 650 mg PO Q6HR PRN (Reason: Pain, Mild (1-3)) Qty: 30 0RF docusate sodium 100 mg Capsule 100 mg PO DAILY Qty: 30 0RF ibuprofen 600 mg Tablet 600 mg PO Q6HR PRN (Reason: Pain, Mild (1-3)) Qty: 30 0RF Continued prenat.vits,kamron,[id number] Tablet 1 tab PO DAILY 0RF Discontinued (DME) Blood Glucose Test Strip See Rx Instructions .Route Qty: 100 2RF Rx Instructions: Use 4 times a day (DME) lancets [BD Ultra Fine Lancets] 33 gauge misc See Rx Instructions .Route Qty: 100 2RF Rx Instructions: 4 times a day (DME) blood-glucose meter Kit See Rx Instructions .Route Qty: 1 0RF Rx Instructions: As directed Follow up/Referrals: Porsha Mccabe MD [Primary Care Provider] - 6 Weeks Diet/Activity/Treatments Diet: Diet as Tolerated and Regular Skin/Wound/Dressing Care Report to your healthcare provider any signs of infection, such as:: chills, fever, increased pain and unusual drainage Visit Report/Discharge Packet Instructions: DI for Labor and Delivery, Vaginal Visit Report Forms: Patient Portal/API, Stroke Signs & Symptoms Discharge Data Primary Care Provider: Porsha Mccabe
== END 2021-08-29 12:45 | disposition home or self-care (01) | DRG 807 ==
PROVIDERS: Admitting Provider Obstetrics & Gynecology; PCP Family Medicine; Referring Provider Obstetrics & Gynecology; Visit Provider Obstetrics & Gynecology
DX: O24.420 Gestational diabetes mellitus in childbirth, diet controlled (principal); Z37.0 Single live birth; Z3A.39 39 weeks gestation of pregnancy; O77.0 Labor and delivery complicated by meconium in amniotic fluid; O70.1 Second degree perineal laceration during delivery
CPT/HCPCS: 01967; 36415; 59050; 59400; 85025; 86850; 86900; 86901; 87635; C9803; G0379; J2590; J3010

== ENCOUNTER → 2021-10-29 09:47 | Outpatient (CLI) | payer OTHER, SELFPAY ==
[2021-10-29 11:35] LABS: Glucose Fasting 93 mg/dL (70-100)
[2021-10-29 11:51] LABS: Glucose 1 Hour 143 mg/dL (70-170)
[2021-10-29 12:06] LABS: Glucose Tol Interpretation INTERPRETATION
[2021-10-29 14:07] LABS: Glucose 2 Hour 79 mg/dL (70-140)
== END ==
PROVIDERS: PCP Family Medicine; Referring Provider Family Medicine; Visit Provider Family Medicine
DX: O24.410 Gestational diabetes mellitus in pregnancy, diet controlled (principal)
CPT/HCPCS: 36415; 82951; 82952

== ENCOUNTER → 2023-03-29 12:28 | Outpatient (CLI) | payer OTHER, SELFPAY ==
[2023-03-29 13:16] LABS: Add Manual Diff / Slide Review NO; Basophils Absolute Auto 100 /uL (0-100); Basophils Percent Auto 0.8 % (0-2); Eosinophils Absolute Auto 100 /uL (0-450); Eosinophils Percent Auto 0.8 % (2-4); Hemoglobin 13.4 g/dL (12.0-16.0); Lymphocytes Absolute Auto 2600 /uL (1100-4500); Mean Corpuscular HGB Conc 33.5 % (30-36); Mean Corpuscular Hemoglobin 28.2 PG (26-34); Monocytes Absolute Auto 1000 /uL (0-900); Monocytes Percent Auto 8.2 % (3-14); Neutrophils Absolute Auto 8600 /uL (1500-7000); Neutrophils Percent Auto 69.2 % (50-75); Platelet Count 345 X10^3/uL (150-400); Red Blood Cell Count 4.76 X10^6/uL (4.0-5.2); Red Cell Distribution Width 14.8 % (11.6-14.8); White Blood Cell Count 12.5 X10^3/uL (4.5-11.0)
[2023-03-29 15:21] LABS: Hemoglobin A1C% w Est Avg Glu 5.3 % (4.0-6.0)
[2023-03-29 16:37] LABS: Hepatitis B Surface Antigen NEGATIVE s/c (NEGATIVE); Rubella Antibody IgG 54.6 IU/mL (>15)
[2023-03-29 16:56] LABS: HIV 1 & 2 Ab/Ag 4th Gen Combo NEGATIVE (NEGATIVE); Hep C Virus Ab w/Reflex Quant NEGATIVE s/c (NEGATIVE)
[2023-03-29 19:18] LABS: Appearance Urine UA CLEAR; Bilirubin Urine UA NEGATIVE (NEGATIVE); Color Urine UA YELLOW; Glucose Urine UA NEGATIVE (Negative); Ketones Urine UA NEGATIVE (NEGATIVE); Leukocyte Esterase Urine UA TRACE (NEGATIVE); Nitrite Urine UA NEGATIVE (Negative); Occult Blood Urine UA NEGATIVE (Negative); Protein Urine UA NEGATIVE (Negative); Urobilinogen Urine UA 0.2 E.U./dL (0.2)
[2023-03-29 19:21] LABS: pH Urine UA 5.5 (4.5-8.0)
[2023-03-29 19:29] LABS: Bacteria Urine Moderate (10-30); RBC Urine 0-1/HPF (0-5/HPF); Squamous Epithelial Cell Urine 5-10 /HPF (0-5/HPF); WBC Urine 0-1/HPF (0-5/HPF)
[2023-03-30 06:08] LABS: RPR Screen Non Reactive (Non Reactive)
[2023-03-30 10:44] LABS: Varicella IgG Antibody 3302 index (Immune >165)
== END ==
PROVIDERS: PCP Family Medicine; Referring Provider Family Medicine; Visit Provider Family Medicine
DX: Z34.81 Encounter for supervision of other normal pregnancy, first trimester (principal); O09.299 Supervision of pregnancy with other poor reproductive or obstetric history, unspecified trimester; Z86.32 Personal history of gestational diabetes
CPT/HCPCS: 36415; 80055; 81003; 81015; 83036; 86787; 86803; 86850; 86900; 86901; 87086; 87389

== ENCOUNTER → 2023-04-09 13:02 | Outpatient (CLI) | payer OTHER, SELFPAY ==
[2023-04-09 15:12] LABS: GTT (PREG) 1 Hour PP 50gm Dose 180 mg/dL (76-139)
== END ==
PROVIDERS: PCP Family Medicine; Referring Provider Family Medicine; Visit Provider Family Medicine
DX: Z86.32 Personal history of gestational diabetes (principal)
CPT/HCPCS: 36415; 82950

== ENCOUNTER → 2023-04-16 09:50 | Outpatient (CLI) | payer OTHER, SELFPAY ==
[2023-04-16 11:33] LABS: Glucose Fasting Gestational 88 mg/dL (76-95)
[2023-04-16 11:55] LABS: Glucose 1 Hour Gest 217 mg/dL (76-180)
[2023-04-16 13:05] LABS: Glucose 2 Hour Gest 158 mg/dL (76-155)
[2023-04-16 13:32] LABS: Glucose Tol Interp,Gestational INTERPRETATION
[2023-04-16 15:57] LABS: Glucose 3 Hour Gest 33 mg/dL (76-140)
== END ==
PROVIDERS: PCP Family Medicine; Referring Provider Family Medicine; Visit Provider Family Medicine
DX: O99.810 Abnormal glucose complicating pregnancy (principal); Z3A.00 Weeks of gestation of pregnancy not specified
CPT/HCPCS: 36415; 82951; 82952

== ENCOUNTER → 2023-06-02 09:32 | Outpatient (CLI) | payer OTHER, SELFPAY ==
[2023-06-04 22:09] LABS: AFP, Serum 42.6 ng/mL (.); Estriol, Free 1.14 ng/mL (.); Inhibin A, Dimeric 295.38 pg/mL (.); Inhibin A, MoM 2.34 (.); Maternal Ethnicity Caucasian (.); Maternal Weight 205 lbs (.); Number of Fetuses No (.); OSBR Risk 1 IN 4529 (.); Results Report (.); Test Results *Screen Negative* (.); hCG, MoM 1.26 (.)
== END ==
PROVIDERS: PCP Family Medicine; Referring Provider Family Medicine; Visit Provider Family Medicine
DX: Z34.81 Encounter for supervision of other normal pregnancy, first trimester (principal)
CPT/HCPCS: 36415; 82105; 82677; 84702; 86336

== ENCOUNTER → 2023-06-16 16:24 | Outpatient (CLI) | payer OTHER, SELFPAY ==
--- NOTE | 2023-06-16 16:25 | DI.US.S_ITS ---
PROCEDURE: US OB >= 14 WEEKS FETUS INDICATIONS: ANATOMY OUTSIDE/PRIOR DATING DATA: Last menstrual period (LMP): 01/27/2023. LMP-based estimated date of delivery (ZION): 11/03/2023. First dating scan (date and location): 03/29/2023. Estimated date of delivery (ZION) from first dating scan: 11/06/2023. The calculations are made using the clinical ZION of 11/03/2023. TECHNIQUE: Real-time scanning was performed of the fetus, with image documentation and biometric measurements. COMPARISON: None. FINDINGS: General: A single living intrauterine gestation is present. Presentation: Vertex. Placenta: Placental position is anterior, without previa. Amniotic fluid index: 12.2 cm, normal range is 5-24 cm. Single deepest vertical pocket is 3.5 cm. heart rate: 144 beats per minute. Maternal cervical canal: 3.9 cm long. Normal lower limit is 2.5 cm. biometrics: Biparietal diameter: 4.6 cm, 20 weeks 0 days Head circumference: 17.3 cm, 19 weeks 6 days Abdominal circumference: 14.6 cm, 20 weeks 0 days Femur length: 3.3 cm, 20 weeks 3 days Clinically estimated gestational age: 20 weeks 0 days Composite gestational age from present scan: 20 weeks 1 day Estimated weight and percentile: 333 g, 52nd percentile. Anatomic survey: Neuro: Ventricles are non-dilated at less than 10 mm. Cisterna magna is normal at 3-11 mm. Cerebellum is normal in size and morphology. Nuchal skin fold: Normal at less than 6 mm between 14-21 weeks gestational age. Face: Nose and lips, facial profile are normal. Spine: No evidence for spina bifida. Heart: 4-chambered heart is present, with normal ventricular outflow tracts. Diaphragm: Diaphragm is intact. Stomach: Left-sided stomach is present. Kidneys: No hydronephrosis. Normal is less than 5 mm in 2nd trimester, less than 7 mm in 3rd trimester. Cord: 3-vessel cord has orthotopic insertion. Bladder: Normal in size. Extremities: All 4 extremities identified. IMPRESSION: 1. [place] living intrauterine at 20 weeks 1 day based on today's ultrasound. Concordant with LMP dating. Fetus is in the 52nd percentile for weight. 2. Normal placenta and amniotic fluid. 3. Normal and complete anatomic survey. We strive to produce accurate, complete, and clear reports of imaging services. To assist us in improving patient care, this report was composed using standard report templates and voice recognition software. Therefore, it may contain abnormal punctuation, insertions and/or omissions. Occasional wrong-word or sound-alike substitutions may occur. Though we review the report and make efforts to correct it, we do recommend that the report be read carefully in proper context to recognize any text inaccuracies. Dictated by: Juan Chpapell M.D. on 06/17/2023 at 8:05 Approved by: Juan Chappell M.D. on 06/17/2023 at 8:13
== END ==
PROVIDERS: PCP Family Medicine; Referring Provider Family Medicine; Visit Provider Family Medicine
DX: Z34.81 Encounter for supervision of other normal pregnancy, first trimester (principal); Z3A.20 20 weeks gestation of pregnancy
CPT/HCPCS: 76811

== ENCOUNTER → 2023-08-20 06:50 | Outpatient (CLI) | payer OTHER, SELFPAY ==
--- NOTE | 2023-08-20 06:51 | DI.US.S_ITS ---
PROCEDURE: US OB FOLLOW UP INDICATIONS: growth, GDM OUTSIDE/PRIOR DATING DATA: Last menstrual period (LMP): 01/27/2023. LMP-based estimated date of delivery (ZION): 11/03/2023. First dating scan (date and location): 03/29/2023 Estimated date of delivery (ZION) from first dating scan: 11/06/2023. The calculations are made using the clinical ZION of 11/03/2023. TECHNIQUE: Real-time scanning was performed of the fetus, with image documentation and biometric measurements. COMPARISON: [facility], OB FOLLOW UP, 04/30/2021, 12:52. [facility], OB >= 14 WEEKS FETUS, 06/16/2023, 16:37. FINDINGS: General: A single living intrauterine gestation is present. Presentation: Vertex. Placenta: Placental position is anterior , without previa. Amniotic fluid index: 15.7 cm, normal range is 5-24 cm. Single deepest vertical pocket is 5.5 cm. heart rate: 136 beats per minute. Maternal cervical canal: 5.6 cm long. Normal lower limit is 2.5 cm. biometrics: Biparietal diameter: 7.4 cm 29 weeks 4 days Head circumference: 27.6 cm 30 weeks 1 day Abdominal circumference: 26.8 cm 30 weeks 6 days Femur length: 5.6 cm 29 weeks 3 days Clinically estimated gestational age: 29 weeks 2 days Composite gestational age from present scan: 30 weeks 0 days Estimated weight and percentile: 1538 g, 73rd percentile Other: Not applicable. IMPRESSION: Single live intrauterine with gestational age today of 30 weeks 0 days. MEG measures 15.7 cm. We strive to produce accurate, complete, and clear reports of imaging services. To assist us in improving patient care, this report was composed using standard report templates and voice recognition software. Therefore, it may contain abnormal punctuation, insertions and/or omissions. Occasional wrong-word or sound-alike substitutions may occur. Though we review the report and make efforts to correct it, we do recommend that the report be read carefully in proper context to recognize any text inaccuracies. Dictated by: Carley Linares M.D. on 08/20/2023 at 13:21 Approved by: Carley Linares M.D. on 08/20/2023 at 13:23
== END ==
LOC: US 06:50
PROVIDERS: PCP Family Medicine; Referring Provider Family Medicine; Visit Provider Family Medicine
DX: O24.419 Gestational diabetes mellitus in pregnancy, unspecified control (principal); Z3A.30 30 weeks gestation of pregnancy
CPT/HCPCS: 76816

== ENCOUNTER → 2023-10-11 10:48 | Outpatient (CLI) | payer OTHER, SELFPAY ==
[2023-10-12 08:59] LABS: Strep Grp B PCR NEG for Grp B Strep
== END ==
PROVIDERS: PCP Family Medicine; Visit Provider Family Medicine
DX: Z34.81 Encounter for supervision of other normal pregnancy, first trimester (principal)
CPT/HCPCS: 87653

== ENCOUNTER 2023-11-04 01:06 | Outpatient (CLI) | payer OTHER, SELFPAY | END 2023-11-04 02:30 | disposition home or self-care (01) | LOC: LABOR 01:13 → OB 11-08 11:18 | PROVIDERS: PCP Family Medicine; Referring Provider Obstetrics & Gynecology; Visit Provider Obstetrics & Gynecology | DX: O47.1 False labor at or after 37 completed weeks of gestation (principal); O48.0 Post-term pregnancy; O24.410 Gestational diabetes mellitus in pregnancy, diet controlled; Z3A.40 40 weeks gestation of pregnancy | CPT/HCPCS: 59025; G0378; G0379 ==

== ENCOUNTER 2023-11-08 00:01 | Inpatient (IN) | payer OTHER, SELFPAY ==
[2023-11-08 00:43] VITALS: BP 138/80
[2023-11-08 01:36] LABS: Add Manual Diff / Slide Review NO; Basophils Absolute Auto 100 /uL (0-100); Basophils Percent Auto 1.1 % (0-2); Eosinophils Absolute Auto 100 /uL (0-450); Eosinophils Percent Auto 0.9 % (2-4); Hematocrit 40.5 % (36-46); Hemoglobin 13.4 g/dL (12.0-16.0); Lymphocytes Absolute Auto 2600 /uL (1100-4500); Lymphocytes Percent Auto 20.6 % (25-40); Mean Corpuscular Hemoglobin 27.3 PG (26-34); Mean Corpuscular Volume 82.7 fL (80-100); Monocytes Absolute Auto 800 /uL (0-900); Neutrophils Absolute Auto 9000 /uL (1500-7000); Neutrophils Percent Auto 71.4 % (50-75); Platelet Count 233 X10^3/uL (150-400); White Blood Cell Count 12.6 X10^3/uL (4.5-11.0)
--- NOTE | 2023-11-08 01:45 | P.PCN_ITS ---
Regional Block Pre-procedure PMH/ROS narrative: term labor, GDM A1, no other medical complications. No sig PMH. ASA Class: II Labs: Hct 40.5 % (36-46) 11/08/23 00:45 Plt Count 233 X10^3/uL (150-400) 11/08/23 00:45 Medications: Current Medications Generic Name Dose Route Start Last Admin Trade Name Freq PRN Reason Stop Dose Admin Calcium Carbonate 1,000 mg 11/08/23 00:39 Calcium Carbonate 500 Mg Tab PO Q4HR PRN Dyspepsia Carboprost Tromethamine 250 mcg 11/08/23 00:39 Carboprost 250 Mcg/Ml Ampul IM Q90M PRN Bleeding Fentanyl 100 mcg 11/08/23 00:39 Fentanyl 100 Mcg/2 Ml Inj IV Q1H PRN Pain, Severe (7-10) Oxytocin/Lactated Ringer's 30 unit in 500 mls @ 200 mls/hr 11/08/23 00:39 Oxytocin Premix IV CONT PRN Bleeding Protocol Tranexamic Acid 1,000 mg/ 100 mls @ 200 mls/hr 11/08/23 00:39 Sodium Chloride IV NOW PRN Bleeding Oxytocin/Lactated Ringer's 30 unit in 500 mls @ 2 mls/hr 11/08/23 00:45 Oxytocin Premix IV TITRATE GENA Protocol 2 MILLIUNIT/MIN Lactated Ringer's 1,000 mls @ 100 mls/hr 11/08/23 00:45 Lactated Ringers IV CONT GENA Lidocaine HCl 20 ml 11/08/23 00:39 Lidocaine 1% 20 Ml INJ INTRA-OP PRN Post Delivery Methylergonovine Maleate 0.2 mg 11/08/23 00:39 Methylergonovine 0.2 Mg Tablet PO Q6HR PRN Heavy Bleeding Methylergonovine Maleate 0.2 mg 11/08/23 00:39 Methylergonovine 0.2 Mg/Ml Vial IM NOW PRN Bleeding Misoprostol 800 mcg 11/08/23 00:39 Misoprostol 200 Mcg Tablet [place] NOW PRN Bleeding Misoprostol 400 mcg 11/08/23 00:39 Misoprostol 200 Mcg Tablet SL NOW PRN Bleeding Naloxone HCl 0.2 mg 11/08/23 00:39 Naloxone 0.4 Mg/Ml Vial IV Q2MIN PRN Opiate Reversal Ondansetron HCl 4 mg 11/08/23 00:39 Ondansetron 4 Mg/2 Ml Inj IV Q4HR PRN Nausea And Vomiting Oxytocin 10 unit 11/08/23 00:39 Oxytocin 10 Unit/Ml Vial IM NOW PRN Bleeding Sodium Chloride 10 ml 11/08/23 09:00 Sodium Chloride 0.9% Flush IV BID GENA Sodium Chloride 10 ml 11/08/23 00:39 Sodium Chloride 0.9% Flush IV PRN PRN Flush Allergies: Allergies Allergy/AdvReac Type Severity Reaction Status Date / Time pine nut Allergy Intermediate Tongue Verified 11/03/23 10:14 gets numb. house dust Allergy Mild Rhinorrhea Verified 11/03/23 10:14 Sulfa (Sulfonamide AdvReac Intermediate Flu-like Verified 11/03/23 10:14 Antibiotics) symptoms Procedure Insertion date: 11/08/23 Insertion time: 01:59 Prep/Local: betadine x3 and 1% lidocaine Interspace: L3-4 Patient position: sitting Needle: 18 gauge Glowing Plant (CSE:27g [place] through [place], clear CSF, 1mL 0.25% bupiv MPF) Loss of resistance with: saline KAVYA at (cm): 5 Catheter placed at SKIN (cm): 11 Catheter in SPACE (cm): 6 Insertion: No CSF, No Blood, No Paresthesia with insertion, No Paresthesia with injection and No Test dose reaction Initial Medications TEST DOSE time: 02:00 TEST DOSE: 1.5% lidocaine with epinephrine 1:200k (mL): 3 BOLUS DOSE time: 02:13 BOLUS DOSE (mL): 4 BOLUS DOSE med: other (infusate) Infusion INFUSION: 0.125% bupivacaine and with fentanyl 2 mcg/mL Initial rate (mL/hr): 10 Subsequent interventions: PCEA@10+4 0345 L sided block >>R. Pt lying R lateral decub. Catheter unchanged, 11cm at skin. 6mL 2%chloroprocaine. No change at 0400. Catheter pulled from 11cm at skin to 9cm, clinician bolus 5mL from pump. 0418 some improvement. 5mL 2%chloroprocaine. 0709. Post-procedure Anesthesia date START: 11/08/23 Anesthesia time START: 01:47 Anesthesia date END: 11/08/23 Anesthesia time END: 07:20 Post-procedure Anesthesia Assessment: Yes CV function: HR/BP stable, Yes Resp function: RR/sat/airway adequate, Yes Post-op hydration adequate, Yes Pain control adequate, Yes Nausea & vomiting absent, Yes Temperature > 36 C, Yes Mental status appropriate and No Anesthesia complications
[2023-11-08] MEDS: OXYTOCIN PREMIX 30 UNIT/500 ML PLAST..BAG IV (04:45)
[2023-11-08] MEDS: LACTATED RINGERS 1,000 ML 100 ML IV (04:45)
[2023-11-08] MEDS: FENT 2MCG/ML BUPIV 0.125% EPI 200 MCG/100 ML PLAST..BAG 10 MCG EPIDURAL (06:10)
[2023-11-08] MEDS: TRANEXAMIC ACID 1,000 MG in SODIUM CHLORIDE 0.9% 100 ML 200 MG IV (07:31)
[2023-11-08] MEDS: IBUPROFEN 600 MG TABLET PO ×3 (11:07→23:44)
--- NOTE | 2023-11-08 11:43 | P.HPOB_ITS ---
OB HPI Date/Time Date of admission: 11/08/23 Date Patient Seen: 11/08/23 History of Present Condition Chief complaint: Labor ZION Calculator 2 Estimated Delivery Date Method Current WG Current Estimate 11/03/23 Manual 40w 5d Final ZION - SOTERO Other Estimates 11/03/23 LMP (Certain) 40w 5d 11/06/23 Ultrasound #1 40w 2d Estimated Gestational Age (weeks): 40w5d : 2 Para: 1 Narrative: 33yo at 40w5d here in active labor. The pt reports contractions on and off for the past week, increasing in intensity significantly overnight. She lost her mucus plug over the last 2 days, with mild bleeding with it. No LOF. She is feeling her baby move regularly. Her was complicated by GDMA1 with excellent control. care: good care, initiated at week # and pounds weight gain Dating criteria OB: LMP confirmed by 1st trimester US Ultrasounds: normal 1st trimester US and normal mid trimester US Obstetrical complications: gestational diabetes Medical complications OB: none Preadmission Labs Last OB Lab Results: 2 Blood Type A Positive 11/08/23 00:45 Antibody Screen Negative 11/08/23 00:45 Hematocrit 40.5 % (36-46) 11/08/23 00:45 Hemoglobin 13.4 g/dL (12.0-16.0) 11/08/23 00:45 Hepatitis B Surface Antigen Negative s/c (NEGATIVE) 03/29/23 12 :36 Hepatitis C Antibody Negative s/c (NEGATIVE) 03/29/23 12:36 Rubella Antibody 54.6 IU/mL (>15) 03/29/23 12:36 Varicella-Zoster IgG Antibody 3302 index (Immune >165) 03/29/23 12:36 Glucose 1 Hour 180 mg/dL (76-139) H 04/09/23 14:24 Group B Streptococcus (PCR) Neg for grp b strep 10/11/23 10:48 Glucose Tolerance Testing: Fasting (88), 1 hr (217), 2 hr (158) and 3 hr (33) -: Urine: negative Genetic Screens: Quad screen: Normal External Labs -: Urine: negative Prior (ies) Past Pregnancies Del. Date GA/Weeks Labor Lgth Wt Sex Route Outcome Anesthesia Place Delv Breastfeed Preg Comp Name 08/27/21 39+ 31 8 lb 14 oz Male vaginal live - full term e pidural IH Attempted, poor production gestational diabetes Vera Evaluation Evaluation Baseline heart rate: 120 Variability: Moderate (11-25) monitor accelerations: Present Monitor Decelerations: Absent Contraction Frequency (minutes): 5 Uterine Contraction Intensity: Strong/Firm Status: Category l Dilation (cm): 10 Effacement (%): 100 station: +2 PFS Medical History (Updated 10/18/23 @ 15:28 by Porsha Mccabe MD) GDM (gestational diabetes mellitus), class A1 Anemia affecting Spontaneous vaginal delivery Wears glasses Closed right arm fracture (~1994) Surgical History (Updated 01/16/21 @ 15:45 by Yaneli Merino RN) [place] teeth extracted (~2009) Family History (Updated 01/16/21 @ 16:14 by Yaneli Merino RN) Mother Obesity Miscarriage Anemia Hypertension Sciatica Herniated disc Father Patellar bursitis Hyperlipidemia Detached retina Hernia Grandmother Stroke (cerebrum) Rheumatic fever Diabetes mellitus Arellano-Monty syndrome Poor circulation Grandfather Congestive heart failure Arrhythmia Myocardial infarction S/P CABG x 4 S/P CABG x 5 Hypertension History of cholecystectomy Shingles Grandmother Osteoporosis Hyperlipidemia Cataracts, bilateral Angina pectoris, unspecified Parkinson's disease Arrhythmia Grandfather Cataracts, bilateral Dementia Schizoid personality Alzheimer disease Sister Schizophrenia Arellano-Monty syndrome History of seizures as a child Bipolar 1 disorder Depression Brother Autism Sister Ulcerative colitis Social History marital status: number of children: 1 household members: spouse and children lives independently: Yes caregiver/support person: No housing: apartment pets and animals: No education level: college occupational status: previously employed current occupational exposures/hazards: No north/hoahaoism: [employer] / [employer] special north needs: Yes (Will likely wear undergarments in labor, but OK with taking them off. ) travel history: recent seatbelt use: always helmet use: Yes water heater temp set < 120 deg: Yes working smoke detector in home: Yes fire extinguisher in home: Yes carbon monox detector in home: Yes firearms in home: No do you feel safe at home: Yes Smoking Status: Never smoker second hand exposure: No alcohol intake: never substance use type: does not use during the past year weight has: other well-balanced diet: daily or most days daily servings fruits/ve or more times/day caffeine: Yes (Rare. ) Type(s) of exercise: walking and bicycling frequency: daily Meds Home Medications and Allergies Home Medications Medication Instructions Recorded Confirmed Type prenat.vits,kamron,hsy-qqmv-zuxxu 1 tab PO DAILY 01/16/21 11/03/23 History blood sugar diagnostic (Blood #400 ea 04/20/23 11/03/23 Rx Glucose Test strips) lancets 33 gauge #400 ea 04/20/23 11/03/23 Rx Allergies Allergy/AdvReac Type Severity Reaction Status Date / Time pine nut Allergy Intermediate Tongue Verified 11/03/23 10:14 gets numb. house dust Allergy Mild Rhinorrhea Verified 11/03/23 10:14 Sulfa (Sulfonamide AdvReac Intermediate Flu-like Verified 11/03/23 10:14 Antibiotics) symptoms OB Exam Resp Effort & Inspection: normal respiratory effort Auscultation: clear to auscultation bilaterally Cardio Rate: regular rate Rhythm: regular rhythm Heart Sounds: S1 normal, S2 normal and no murmurs GI Inspection: non-distended Palpation: Yes soft and No tender Presentation: vertex Objective Labs 11/08/23 00:45 Labs: Laboratory Results - last 24 hr 11/08/23 00:45 WBC 12.6 H RBC 4.90 Hgb 13.4 Hct 40.5 MCV 82.7 MCH 27.3 MCHC 33.0 RDW 16.0 H Plt Count 233 Neut % (Auto) 71.4 Lymph % (Auto) 20.6 L [place] % (Auto) 6.0 Eos % (Auto) 0.9 L Baso % (Auto) 1.1 Neut # (Auto) 9000 H Lymph # (Auto) 2600 [place] # (Auto) 800 Eos # (Auto) 100 Baso # (Auto) 100 Blood Type A Positive Antibody Screen Negative Assessment and Plan Assessment and Plan Assessment and Plan narrative: 33yo at 40w5d here in active labor. complicated by GDMA1. GBS negative, Rh positive. On low dose pitocin due to spacing of contractions. - FHT reassuring - Expectant management, anticipate . Will start pushing now. - GBS negative, no prophylaxis needed - Epidural in place for pain control
--- NOTE | 2023-11-08 11:49 | PM.OBPRVD ---
Events: Gestational Diabetes Labor & Delivery Delivery date: 11/08/23 Delivery augmentation: rupture of membranes Delivery monitor: external FHT and external uterine Route of delivery: Episiotomy description: None L&D Laceration Description: None Quantitative Blood Loss: 1,288 Anesthesia Type: Epidural Complications: hemorrhage Narrative: PROCEDURE: at 40w5d presented in active labor and was admitted to Labor and Delivery. The patient progressed through the 1st stage over 39 minutes. AROM occured at 6:30 with meconium-stained fluid. Pain was controlled with an epidural. The patient progressed through the 2nd stage over 32 minutes and delivered a viable female infant with APGARs 4/9 at 7:09 via . Nuchal x 1 was reduced at the perineum. The cord was cut and clamped after it stopped pulsating. With active management of the 3rd stage of labor, gentle traction was applied to the umbilical cord. The cord avulsed, and the placenta was manually extracted. During this process the pt had heavy vaginal bleeding. She was given TXA and pitocin. After the placenta was extracted, her uterine tone was excellent with fundus 1 below the umbilicus. The placenta appeared complete. The perineum and vagina were inspected with no lacerations. Needle and sponge counts were correct.? The vagina was inspected and no items were left in situ. Tyalor was doing well with her and her at bedside. PREPROCEDURE DIAGNOSIS: Intrauterine at 40w5d GDMA1 GBS negative RH positive POSTPROCEDURE DIAGNOSIS: Intrauterine at 40w5d, delivered Same as preprocedure hemorrhage LGA [place] Baby 1: Infant gender: Female Presentation: vertex Position: Left Occiput Anterior Placenta delivery description: Spontaneous Cord Vessel Description: 3 Vessels and Nuchal Cord score (1 min): 4 score (5 min): 9 weight: 9 lb 8.842 oz Plan for aftercare: Routine care
[2023-11-08] MEDS: ACETAMINOPHEN 325 MG TABLET 650 MG PO ×2 (12:38→18:24)
[2023-11-09] MEDS: ACETAMINOPHEN 325 MG TABLET 650 MG PO ×2 (02:06→09:08)
[2023-11-09 09:00] LABS: Add Manual Diff / Slide Review NO; Basophils Absolute Auto 100 /uL (0-100); Basophils Percent Auto 0.7 % (0-2); Eosinophils Absolute Auto 100 /uL (0-450); Hematocrit 32.7 % (36-46); Hemoglobin 10.6 g/dL (12.0-16.0); Lymphocytes Absolute Auto 2500 /uL (1100-4500); Lymphocytes Percent Auto 20.1 % (25-40); Mean Corpuscular HGB Conc 32.5 % (30-36); Mean Corpuscular Hemoglobin 27.3 PG (26-34); Mean Corpuscular Volume 84.1 fL (80-100); Monocytes Absolute Auto 800 /uL (0-900); Monocytes Percent Auto 6.6 % (3-14); Neutrophils Absolute Auto 9000 /uL (1500-7000); Neutrophils Percent Auto 71.6 % (50-75); Platelet Count 165 X10^3/uL (150-400); Red Blood Cell Count 3.88 X10^6/uL (4.0-5.2); Red Cell Distribution Width 15.8 % (11.6-14.8); White Blood Cell Count 12.5 X10^3/uL (4.5-11.0)
[2023-11-09] MEDS: DOCUSATE 100 MG CAPSULE PO (09:08)
[2023-11-09] MEDS: FERROUS SULFATE 325 MG TABLET PO (09:08)
[2023-11-09] MEDS: PRENATAL VIT,CALC/IRON/FOLIC 1 TABLET 1 TAB PO (09:08)
[2023-11-09 09:51] VITALS: BP 121/73; PULSE 81; RESP 16; TEMP 37.2
[2023-11-09 12:53] VITALS: BP 121/73; PULSE 81; RESP 16; TEMP 37.2
--- NOTE | 2023-11-09 13:13 | P.DS_ITS ---
Discharge Providers Provider Date of admission: 11/08/23 00:01 Discharge Date: 11/09/23 Primary care physician: Porsha Mccabe MD Consults: 11/08/23 00:39 Consult to Anesthesiology Urgent Comment: Consulting Provider: Anesthesiologist Reason for consultation: Epidural 11/10/23 08:02 Consult to Regulatory Affairs Coordinator Routine Comment: Discharge provider: Porsha Mccabe MD Summary Hospital Course Date Patient Seen: 11/09/23 Diagnoses: Intrauterine at 40w5d GDMA1 GBS negative RH positive hemorrhage LGA Hospital Course: The pt presented in active labor. She received an epidural for pain control. Due to spacing of contractions, low dose pitocin was initiated. She progressed to complete, and AROM was performed with meconium-stained fluid present. She had a spontaneous vaginal delivery of a viable baby girl. During active management of the 3rd stage of labor, the cord avulsed. The placenta was then manually extracted. The pt had heavy bleeding during this process, but excellent uterine tone after the placenta was removed with the use of TXA and pitocin. , there were no additional complications. At the time of discharge she was voiding, ambulating, and passing flatus without difficulty. Her lochia was decreasing appropriately. Her pain was well controlled. She is primarily formula feeding. She will f/u in 6 weeks for check. Peripartum Data Infant Delivery Method: Natural Vaginal Laceration Description: None Episiotomy description: None Procedures: Spontaneous vaginal delivery complications: retained placenta 1: Gender: Female Disposition of : home Time Spent with Patient Time attestation: Total time spent providing and/or coordinating discharge services: Objective Labs 11/09/23 08:24 Labs: Laboratory Results - last 24 hr 11/09/23 08:24 WBC 12.5 H RBC 3.88 L Hgb 10.6 L Hct 32.7 L MCV 84.1 MCH 27.3 MCHC 32.5 RDW 15.8 H Plt Count 165 Neut % (Auto) 71.6 Lymph % (Auto) 20.1 L Wilkin % (Auto) 6.6 Eos % (Auto) 1.0 L Baso % (Auto) 0.7 Neut # (Auto) 9000 H Lymph # (Auto) 2500 Wilkin # (Auto) 800 Eos # (Auto) 100 Baso # (Auto) 100 Exam Vital Signs (past 8 hours): - 11/09/23 09:51 11/09/23 12:53 Temperature 99.0 F 99.0 F Pulse Rate 81 81 Respiratory Rate 16 16 Blood Pressure 121/73 121/73 Narrative Exam Narrative: Gen: NAD, sitting comfortably in bed, appears well CV: RRR, no murmurs Resp: clear to auscultation bilaterally Abd: soft, appropriately tender, fundus firm and below the umbilicus, nondistended Ext: no edema Discharge Plan Discharge Plan Patient Disposition: Home Discharge orders & Medications Prescriptions: New acetaminophen 325 mg Tablet 650 mg PO Q6HR PRN (Reason: Pain, Mild (1-3)) Qty: 30 0RF docusate sodium 100 mg Capsule 100 mg PO DAILY Qty: 30 0RF ibuprofen 600 mg Tablet 600 mg PO Q6HR PRN (Reason: Pain, Mild (1-3)) Qty: 30 0RF Continued prenat.vits,kamron,fxc-qdlt-iulol Tablet 1 tab PO DAILY Discontinued (DME) Blood Glucose Test Strip See Rx Instructions .Route Qty: 400 2RF Rx Instructions: Use 4 times a day, fasting and 2 hours after meals (DME) lancets 33 gauge misc See Rx Instructions .Route Qty: 400 2RF Rx Instructions: 4 times a day, fasting and 2 hours after eating Follow up/Referrals: Appointment [Other] - 11/15/23 11:00 am Porsha Mccabe MD [Primary Care Provider] - ( Appt w/ Dr. Mccabe: December 20 @ 11:30am) Diet/Activity/Treatments Diet: Diet as Tolerated and Regular Skin/Wound/Dressing Care Report to your healthcare provider any signs of infection, such as:: chills, fever, increased pain and unusual drainage Visit Report/Discharge Packet Instructions: DI for Labor and Delivery, Vaginal Stand Alone Forms: Discharge: Care, Patient Portal/API, Stroke Signs & Symptoms Discharge Data Primary Care Provider: Porsha Mccabe
== END 2023-11-09 14:18 | disposition home or self-care (01) | DRG 806 ==
PROVIDERS: Admitting Provider Family Medicine; PCP Family Medicine; Referring Provider Family Medicine; Visit Provider Family Medicine
DX: O24.429 Gestational diabetes mellitus in childbirth, unspecified control (principal); O72.0 Third-stage hemorrhage; Z37.0 Single live birth; Z3A.40 40 weeks gestation of pregnancy
CPT/HCPCS: 36415; 59050; 85025; 86850; 86900; 86901; G0379; J2590

== ENCOUNTER → 2024-08-04 11:46 | Outpatient (CLI) | payer OTHER, SELFPAY ==
[2024-08-04 12:57] LABS: Hemoglobin A1C% w Est Avg Glu 5.5 % (4.0-6.0)
== END ==
PROVIDERS: PCP Family Medicine; Referring Provider Family Medicine; Visit Provider Family Medicine
DX: O24.410 Gestational diabetes mellitus in pregnancy, diet controlled (principal)
CPT/HCPCS: 36415; 83036